=== PATIENT | male | born 1950 | race Caucasian/White ===

== ENCOUNTER 2018-05-31 19:26 | Outpatient (REF) | payer MEDICARE, SELFPAY ==
[2018-05-31 22:16] LABS: ALT 37 U/L (12-78); AST 23 U/L (15-37); Albumin 3.7 g/dL (3.4-5.0); Alkaline Phosphatase 79 U/L (46-116); Anion Gap 7.6 mmol/L (3-11); BUN 22 mg/dL (7-18); Bilirubin, Total 0.8 mg/dL (0.2-1.0); CO2 33.4 mmol/L (21.0-32.0); CREATININE 1.06 mg/dL (0.70-1.30); Calcium 9.6 mg/dL (8.5-10.1); Chloride 100 mmol/L (98-107); Cholesterol 166 mg/dL (50-200); Glucose 108 mg/dL (70-100); HDL Cholesterol 49 mg/dL (40-60); LDL CHOLESTEROL 90 mg/dL (<100); Potassium 3.7 mmol/L (3.5-5.1); Sodium 141 mmol/L (136-145); Total Protein 7.1 g/dL (6.4-8.2); Triglyceride 162 mg/dL (30-150)
== END 2018-05-31 19:46 ==
LOC: NCHCN 19:26
PROVIDERS: PCP Family Medicine; Visit Provider Family Medicine
DX: E78.5 Hyperlipidemia, unspecified (principal); I10 Essential (primary) hypertension
CPT/HCPCS: 80053; 80061; 83721

== ENCOUNTER 2019-05-27 07:47 | Outpatient (REF) | payer MEDICARE, OTHER, SELFPAY ==
[2019-05-27 21:55] LABS: ALT 37 U/L (16-63); AST 22 U/L (15-37); Albumin 3.8 g/dL (3.4-5.0); Alkaline Phosphatase 88 U/L (46-116); Anion Gap 6.1 mmol/L (3-11); BUN 28 mg/dL (7-18); Bilirubin, Total 0.5 mg/dL (0.2-1.0); CO2 34.9 mmol/L (21.0-32.0); CREATININE 1.13 mg/dL (0.70-1.30); Calcium 9.4 mg/dL (8.5-10.1); Calculated LDL 103 mg/dL (<100); Chloride 100 mmol/L (98-107); Cholesterol 175 mg/dL (<200); Glucose 106 mg/dL (74-106); HDL Cholesterol 49 mg/dL (40-60); Potassium 3.8 mmol/L (3.5-5.1); Sodium 141 mmol/L (136-145); Total Protein 7.6 g/dL (6.4-8.2); Triglyceride 117 mg/dL (<150)
[2019-05-27 22:03] LABS: Hemoglobin A1C 6.3 % (3.8-5.6)
== END 2019-05-27 08:07 ==
LOC: NCHCN 07:47
PROVIDERS: PCP Family Medicine; Visit Provider Family Medicine
DX: E78.5 Hyperlipidemia, unspecified (principal); R73.03 Prediabetes; E66.9 Obesity, unspecified
CPT/HCPCS: 80053; 80061; 83036

== ENCOUNTER 2020-09-24 10:25 | Outpatient (REF) | payer MEDICARE, SELFPAY ==
[2020-09-24 20:54] LABS: Hemoglobin A1C 6.1 % (<5.7)
[2020-09-24 21:01] LABS: ALT 36 U/L (16-63); AST 21 U/L (15-37); Albumin 3.5 g/dL (3.4-5.0); Alkaline Phosphatase 77 U/L (46-116); Anion Gap 10.2 mmol/L (3-11); BUN 24 mg/dL (7-18); Bilirubin, Total 0.5 mg/dL (0.2-1.0); CO2 29.8 mmol/L (21.0-32.0); CREATININE 1.4 mg/dL (0.70-1.30); Calcium 8.9 mg/dL (8.5-10.1); Calculated LDL 42 mg/dL (<100); Chloride 104 mmol/L (98-107); Cholesterol 160 mg/dL (<200); Glucose 103 mg/dL (74-106); HDL Cholesterol 46 mg/dL (40-60); Potassium 3.6 mmol/L (3.5-5.1); Sodium 144 mmol/L (136-145); Total Protein 6.9 g/dL (6.4-8.2); Triglyceride 360 mg/dL (<150)
[2020-09-25 18:03] LABS: PSA, Screening 1.6 ng/mL (0.0-6.5)
== END 2020-09-24 10:26 | disposition home or self-care (01) ==
LOC: NCHCN 10:25
PROVIDERS: PCP Family Medicine; Visit Provider Family Medicine
DX: Z00.00 Encounter for general adult medical examination without abnormal findings (principal); E78.5 Hyperlipidemia, unspecified; I10 Essential (primary) hypertension; E66.9 Obesity, unspecified; R73.03 Prediabetes
CPT/HCPCS: 80053; 80061; 84153; 83036

== ENCOUNTER 2021-09-30 07:59 | Outpatient (REF) | payer MEDICARE, SELFPAY ==
[2021-09-30 14:59] LABS: ALT 29 U/L (16-63); AST 27 U/L (15-37); Albumin 3.6 g/dL (3.4-5.0); Alkaline Phosphatase 63 U/L (46-116); Anion Gap 5.1 mmol/L (3-11); BUN 22 mg/dL (7-18); Bilirubin, Total 0.6 mg/dL (0.2-1.0); CO2 32.9 mmol/L (21.0-32.0); CREATININE 1.1 mg/dL (0.70-1.30); Calcium 9.1 mg/dL (8.5-10.1); Calculated LDL 67 mg/dL (<100); Chloride 105 mmol/L (98-107); Cholesterol 133 mg/dL (<200); Glucose 105 mg/dL (74-106); HDL Cholesterol 49 mg/dL (40-60); Potassium 3.9 mmol/L (3.5-5.1); Sodium 143 mmol/L (136-145); Total Protein 7.3 g/dL (6.4-8.2); Triglyceride 89 mg/dL (<150)
[2021-09-30 16:03] LABS: Hemoglobin A1C 6.1 % (<5.7)
== END 2021-09-30 08:00 | disposition home or self-care (01) ==
LOC: NCHCN 07:59
PROVIDERS: PCP Family Medicine; Visit Provider Family Medicine
DX: I10 Essential (primary) hypertension (principal); R73.03 Prediabetes; E66.9 Obesity, unspecified
CPT/HCPCS: 80053; 80061; 83036

== ENCOUNTER 2022-10-21 15:47 | Outpatient (REF) | payer MEDICARE, SELFPAY ==
[2022-10-21 17:32] LABS: ALT 29 U/L (16-63); AST 25 U/L (15-37); Albumin 3.4 g/dL (3.4-5.0); Alkaline Phosphatase 73 U/L (46-116); Anion Gap 7.2 mmol/L (3-11); BUN 22 mg/dL (7-18); Bilirubin, Total 0.6 mg/dL (0.2-1.0); CO2 30.8 mmol/L (21.0-32.0); Calcium 9.4 mg/dL (8.5-10.1); Calculated LDL 67 mg/dL (<100); Chloride 103 mmol/L (98-107); Cholesterol 135 mg/dL (<200); Estimated GFR 79.97 (mL/min/1.73m2); Glucose 100 mg/dL (74-106); HDL Cholesterol 48 mg/dL (40-60); Potassium 3.4 mmol/L (3.5-5.1); Sodium 141 mmol/L (136-145); Total Protein 7.3 g/dL (6.4-8.2); Triglyceride 100 mg/dL (<150)
[2022-10-21 17:53] LABS: Hemoglobin A1C 6.1 % (<5.7)
== END 2022-10-21 15:48 | disposition home or self-care (01) ==
LOC: NCHCN 15:47
PROVIDERS: PCP Family Medicine; Visit Provider Family Medicine
DX: I10 Essential (primary) hypertension (principal); R73.03 Prediabetes; E78.5 Hyperlipidemia, unspecified
CPT/HCPCS: 80053; 80061; 83036

== ENCOUNTER 2023-04-26 12:48 | Outpatient (REF) | payer MEDICARE, SELFPAY ==
[2023-04-26 14:53] LABS: Anion Gap 4.2 mmol/L (3-11); BUN 16 mg/dL (7-18); CO2 33.8 mmol/L (21.0-32.0); CREATININE 1.1 mg/dL (0.70-1.30); Calcium 9.4 mg/dL (8.5-10.1); Chloride 102 mmol/L (98-107); Estimated GFR 71.32 (mL/min/1.73m2); Glucose 106 mg/dL (74-106); Potassium 3.8 mmol/L (3.5-5.1); Sodium 140 mmol/L (136-145)
[2023-04-26 16:10] LABS: Hemoglobin A1C 6.2 % (<5.7)
== END 2023-04-26 12:49 | disposition home or self-care (01) ==
LOC: NCHCN 12:48
PROVIDERS: PCP Family Medicine; Visit Provider Family Medicine
DX: R73.03 Prediabetes (principal)
CPT/HCPCS: 80048; 83036

== ENCOUNTER 2023-10-27 12:33 | Outpatient (REF) | payer MEDICARE, SELFPAY ==
[2023-10-27 14:47] LABS: ALT 29 U/L (16-63); AST 28 U/L (15-37); Albumin 3.2 g/dL (3.4-5.0); Alkaline Phosphatase 88 U/L (46-116); BUN 16 mg/dL (7-18); Bilirubin, Total 0.66 mg/dL (0.2-1.0); Calcium 9.1 mg/dL (8.5-10.1); Calculated LDL 93 mg/dL (<100); Chloride 104 mmol/L (98-107); Cholesterol 160 mg/dL (<200); Estimated GFR 79.47 (mL/min/1.73m2); Glucose 106 mg/dL (74-106); HDL Cholesterol 53 mg/dL (40-60); Potassium 4.2 mmol/L (3.5-5.1); Sodium 141 mmol/L (136-145); Total Protein 6.9 g/dL (6.4-8.2); Triglyceride 74 mg/dL (<150)
[2023-10-27 14:51] LABS: Hemoglobin A1C 6.2 % (<5.7)
== END 2023-10-27 12:34 | disposition home or self-care (01) ==
LOC: NCHCN 12:33
PROVIDERS: PCP Family Medicine; Visit Provider Family Medicine
DX: I10 Essential (primary) hypertension (principal); E78.5 Hyperlipidemia, unspecified; R73.03 Prediabetes
CPT/HCPCS: 80053; 80061; 83036

== ENCOUNTER 2023-11-09 10:43 | Outpatient (REF) | payer MEDICARE, SELFPAY ==
[2023-11-09 22:00] LABS: PSA, Screening 2.9 ng/mL (<=6.5)
== END 2023-11-09 10:44 | disposition home or self-care (01) ==
LOC: NCHCN 10:43
PROVIDERS: PCP Family Medicine; Visit Provider Family Medicine
DX: Z12.5 Encounter for screening for malignant neoplasm of prostate (principal)
CPT/HCPCS: 84153

== ENCOUNTER 2024-11-08 08:12 | Outpatient (REF) | payer MEDICARE, SELFPAY ==
[2024-11-08 16:26] LABS: Hemoglobin A1C 5.7 % (<5.7)
[2024-11-08 16:31] LABS: ALT 23 U/L (16-63); AST 26 U/L (15-37); Albumin 3.7 g/dL (3.4-5.0); Alkaline Phosphatase 81 U/L (46-116); Anion Gap 6.4 mmol/L (3-11); BUN 26 mg/dL (7-18); Bilirubin, Total 0.7 mg/dL (0.2-1.0); CO2 32.6 mmol/L (21.0-32.0); Calcium 9.3 mg/dL (8.5-10.1); Calculated LDL 150 mg/dL (<100); Chloride 101 mmol/L (98-107); Cholesterol 224 mg/dL (<200); Estimated GFR 63.46 (mL/min/1.73m2); Glucose 91 mg/dL (74-106); HDL Cholesterol 51 mg/dL (>or=40); Potassium 3.6 mmol/L (3.5-5.1); Sodium 140 mmol/L (136-145); Total Protein 7.7 g/dL (6.4-8.2); Triglyceride 119 mg/dL (<150)
== END 2024-11-08 08:13 | disposition home or self-care (01) ==
LOC: NCHCN 08:12
PROVIDERS: PCP Family Medicine; Visit Provider Family Medicine
DX: R73.03 Prediabetes (principal); I10 Essential (primary) hypertension; E78.5 Hyperlipidemia, unspecified
CPT/HCPCS: 80053; 80061; 83036